=== PATIENT | female | born 1935 | race Caucasian/White ===

== ENCOUNTER → 2018-11-11 | Outpatient (CLI) | payer MEDICARE ==
[~2018-11-11] MED LIST: ATORVASTATIN CA40 MG PO; CIPRO500 MG PO; ECOTRIN325 MG PO; HYDROCODONE-HOMA5 ML PO; LOSARTAN POTAS100 MG PO; MULTIVITAMINS1 EAC8; QUINAPRIL HCL40 MG PO; SYNTHROID125 MCG PO; TRIAMTERENE-HC1 EAC2; VERAPAMIL ER240 MG PO; VERAPAMIL HCL120 M1 PO; VITAMIN C
--- NOTE | 2018-11-12 07:37 | Diagnostic Imaging Report ---
PROCEDURE:X-RAY MODIFIED BARIUM SWALLOW COMPARISON:None. INDICATIONS:Dysphagia, GERD DISCUSSION:Fluoroscopic examination was performed in conjunction with speech pathology, during swallowing of a variety of thin and thick liquid consistencies. Fluoro time: 2.3 min Cumulative dose: 2.28 Gy.cm2 CONCLUSION:Trace aspiration with laryngeal penetration. Please see the report from speech pathology for complete details. Javier Hernandez D.O. Dictated by: Javier Hernandez D.O. on 11/12/2018 at 7:48 Electronically approved by: Javier Hernandez D.O. on 11/12/2018 at 7:48
== END ==
LOC: DX 13:05
PROVIDERS: ATTEND Internal Medicine Gastroenterology
DX: K29.00 Acute gastritis without bleeding (principal); K44.9 Diaphragmatic hernia without obstruction or gangrene; K21.0 Gastro-esophageal reflux disease with esophagitis; B37.81 Candidal esophagitis
CPT/HCPCS: 74230

== ENCOUNTER 2022-03-16 11:25 | Emergency (ER) | payer MEDICARE ==
[~2022-03-16] VITALS: Ht 162.6 cm; Wt 56.2 kg
[2022-03-16] MEDS ORDERED: BACTRIM DS TAB1 EACH PO (11:44)
[2022-03-16] MEDS ORDERED: CEPHALEXIN500 MG PO (11:44)
== END 2022-03-16 11:47 | disposition home or self-care (01) ==
LOC: ER 11:35
DX: S89.91XA Unspecified injury of right lower leg, initial encounter (principal); I10 Essential (primary) hypertension; E03.9 Hypothyroidism, unspecified
CPT/HCPCS: 99284

== ENCOUNTER 2022-03-27 09:35 | Outpatient (RCR) | payer MEDICARE ==
[2022-03-20 12:25] LABS: BASOPHILS # (AUTO) 0.1 (0.0-0.1); BASOPHILS % 0.9 % (0.0-1.0); EOSINOPHILS # (AUTO) 0.1 (0.0-0.4); EOSINOPHILS % 1.9 % (0.0-6.0); HEMATOCRIT 38.2 % (34.2-44.1); HEMOGLOBIN 12.3 g/dL (12.0-16.0); LYMPHOCYTES # (AUTO) 0.8 (1.0-3.2); LYMPHOCYTES % 13.4 % (18.0-39.1); MEAN CORPUSCULAR HEMOGLOBIN 31.5 pg (28-32); MEAN CORPUSCULAR HGB CONC 32.2 g/dL (31-35); MEAN CORPUSCULAR VOLUME 97.9 fL (81-99); MONOCYTES # (AUTO) 0.5 (0.2-0.8); MONOCYTES % 8.6 % (4.4-11.3); NEUTROPHILS # (AUTO) 4.4 (2.1-6.9); PLATELET COUNT 201 x10e3/uL (140-360); RED CELL DISTRIBUTION WIDTH 14.1 % (11.7-14.4)
[2022-03-20 12:48] LABS: ANION GAP 15.8 mmol/L (8-16); CALCIUM 9.6 mg/dL (8.4-10.2); CREATININE, SERUM 1.7 mg/dL (0.57-1.11); POTASSIUM 4.8 mmol/L (3.5-5.1)
[~2022-03-27 09:35] MED LIST changes: +BACTRIM DS TAB1 EACH PO; +CEPHALEXIN500 MG PO; +LIDOCAINE VISC 2% SOLN 15 ML UDC ONE
[2022-03-27] MEDS ORDERED: LIDOCAINE VISC 2% SOLN 15 ML UDC ONE (13:38)
== END 2022-04-06 ==
LOC: WCC 09:35
PROVIDERS: ATTEND Internal Medicine Infectious Disease
DX: I87.331 Chronic venous hypertension (idiopathic) with ulcer and inflammation of right lower extremity (principal); L97.811 Non-pressure chronic ulcer of other part of right lower leg limited to breakdown of skin; I87.2 Venous insufficiency (chronic) (peripheral); R60.0 Localized edema; I10 Essential (primary) hypertension; E03.9 Hypothyroidism, unspecified; F17.219 Nicotine dependence, cigarettes, with unspecified nicotine-induced disorders
CPT/HCPCS: 36415; 80048; 84134; 85025

== ENCOUNTER 2022-04-21 11:31 | Outpatient (RCR) | payer MEDICARE ==
[~2022-04-21 11:31] MED LIST changes: +MUPIROCIN 2% OINT 22 GM TUBE ONE; +SODIUM CHLORIDE 0.9% 500ML 0 ML ONE; +TRANEXAMIC ACID 0 ML ONE; +Vancomycin IV 0 MG ONE
== END 2022-05-07 ==
LOC: WCC 11:31
PROVIDERS: ATTEND Internal Medicine Infectious Disease
DX: I87.331 Chronic venous hypertension (idiopathic) with ulcer and inflammation of right lower extremity (principal); L97.811 Non-pressure chronic ulcer of other part of right lower leg limited to breakdown of skin; I87.2 Venous insufficiency (chronic) (peripheral); R60.0 Localized edema; I10 Essential (primary) hypertension; E03.9 Hypothyroidism, unspecified; F17.219 Nicotine dependence, cigarettes, with unspecified nicotine-induced disorders
CPT/HCPCS: J3370; J7040

== ENCOUNTER 2023-04-02 10:12 | Observation (INO) | payer MEDICARE ==
[2023-03-30 13:13] LABS: BASOPHILS % 0.5 % (0.0-1.0); EOSINOPHILS # (AUTO) 0.1 (0.0-0.4); EOSINOPHILS % 1.3 % (0.0-6.0); HEMATOCRIT 38.9 % (34.2-44.1); HEMOGLOBIN 12.5 g/dL (12.0-16.0); LYMPHOCYTES # (AUTO) 1.4 (1.0-3.2); LYMPHOCYTES % 17.1 % (18.0-39.1); MEAN CORPUSCULAR HEMOGLOBIN 31.3 pg (28-32); MEAN CORPUSCULAR HGB CONC 32.1 g/dL (31-35); MEAN CORPUSCULAR VOLUME 97.3 fL (81-99); MONOCYTES # (AUTO) 0.6 (0.2-0.8); MONOCYTES % 7.3 % (4.4-11.3); NEUTROPHILS # (AUTO) 6.1 (2.1-6.9); NEUTROPHILS % 73.3 % (38.7-80.0); PLATELET COUNT 246 x10e3/uL (140-360); RED CELL DISTRIBUTION WIDTH 13.7 % (11.7-14.4)
[~2023-04-02] VITALS: Ht 162.6 cm; Wt 55.3 kg
[~2023-04-02 10:12] MED LIST changes: +ALLEGRA ALLERGY60 MG PO; +BENICAR20 MG PO; +BIOTIN800 MCG PO; +CLONIDINE HCL0.1 MG PO; +CLOPIDOGREL75 MG PO; -LIDOCAINE VISC 2% SOLN 15 ML UDC ONE; +MIRALAX17 GM PO; -MUPIROCIN 2% OINT 22 GM TUBE ONE; -SODIUM CHLORIDE 0.9% 500ML 0 ML ONE; -TRANEXAMIC ACID 0 ML ONE; +VITAMIN D325 MCG; -Vancomycin IV 0 MG ONE
[2023-04-02] MEDS ORDERED: CEFAZOLIN SODIUM 2 GM ONE (10:46)
[2023-04-02] MEDS ORDERED: CELECOXIB 200 MG CAP ONE (10:46)
[2023-04-02] MEDS ORDERED: DEXAMETHASONE SOD PHOS 10 MG/1 ML VIAL ONE ×2 (10:46→11:59)
[2023-04-02] MEDS ORDERED: GABAPENTIN 300 MG CAP ONE (10:46)
[2023-04-02] MEDS ORDERED: LACTATED RINGER'S 1,000 ML ONE (10:47)
[2023-04-02] MEDS ORDERED: ACETAMINOPHEN 1000 MG/100 ML 100 ML IV ONE (10:59)
[2023-04-02] MEDS ORDERED: VITAMIN D325 MCG (11:02)
[2023-04-02 11:21] LABS: ANION GAP 16.6 mmol/L (8-16); CALCIUM 9.8 mg/dL (8.4-10.2); CREATININE, SERUM 0.99 mg/dL (0.57-1.11); POTASSIUM 4.6 mmol/L (3.5-5.1)
[2023-04-02] MEDS ORDERED: DEXAMETHASONE SOD PHOS INJ 4 MG/ML SDV ONE (11:55)
[2023-04-02] MEDS ORDERED: PROPOFOL IV EMULSION 10 MG/ML 20 ML VIAL ONE (11:55)
[2023-04-02] MEDS ORDERED: ONDANSETRON HCL INJ 2MG/ML 2ML 2 MG/ML VIAL ONE (11:55)
[2023-04-02] MEDS ORDERED: POVIDONE IODINE 0.05% 0.05 % ML PO ONE (11:55)
[2023-04-02] MEDS ORDERED: LIDOCAINE HCL 2% LOCAL INJ 5 ML SDV VIAL INJ ONE (11:55)
[2023-04-02] MEDS ORDERED: SEVOFLURANE INHAL SOLN 250 ML PEN BTL ONE (11:55)
[2023-04-02] MEDS ORDERED: ROPIVACAINE 0.5% 5 MG/ML 30 ML SDV ONE (11:59)
[2023-04-02] MEDS ORDERED: SODIUM CHLORIDE 0.9% 500ML 500 ML ONE (12:19)
[2023-04-02] MEDS ORDERED: Vancomycin IV 1,000 MG ONE (12:19)
[2023-04-02] MEDS ORDERED: TRANEXAMIC ACID 20 ML ONE (12:19)
[2023-04-02] MEDS ORDERED: DOCUSATE SODIUM 100 MG CAP PO PRN (14:00)
[2023-04-02] MEDS ORDERED: ONDANSETRON HCL INJ 2MG/ML 2ML 2 MG/ML VIAL IV PRN (14:00)
[2023-04-02] MEDS ORDERED: HYDROCODONE/APAP 5MG-325MG TAB PO PRN (14:00)
[2023-04-02] MEDS ORDERED: DIPHENHYDRAMINE HCL INJ 50 MG/ML VIAL IV PRN (14:00)
[2023-04-02] MEDS ORDERED: ACETAMINOPHEN 650 MG SUPP PR PRN (14:00)
[2023-04-02] MEDS ORDERED: HYDRALAZINE HCL 20 MG/ML VIAL ONE (14:29)
[2023-04-02] MEDS ORDERED: FENTANYL CITRATE/PF 100MCG/2 ML INJ ONE (14:41)
[2023-04-02 15:49] VITALS: BP 158/41; PULSE 80; RESP 18; TEMP 97.6; O2SAT 100
[2023-04-02] MEDS: ASPIRIN 325 MG TAB PO SCH (16:26)
[2023-04-02] MEDS: SODIUM CHLORIDE 0.9% 1000ML 1,000 ML IV SCH (16:26)
[2023-04-02] MEDS: HYDROCODONE/APAP 7.5MG-325MG 1 EA TAB PO PRN ×2 (16:27→21:04)
[2023-04-02 16:32] VITALS: PULSE 79; RESP 16; O2SAT 94
[2023-04-02 17:44] VITALS: BP 158/41; PULSE 79; RESP 16; TEMP 97.6; O2SAT 94
[2023-04-02] MEDS ORDERED: ACETAMINOPHEN 1000 MG/100 ML IV PRN (18:00)
[2023-04-02 20:00] VITALS: BP 139/63; PULSE 86; RESP 18; TEMP 97.5; O2SAT 97
[2023-04-02 20:05] VITALS: PULSE 86; RESP 18; O2SAT 97
[2023-04-03] VITALS (8 sets, daily range): BP systolic 143–165; BP diastolic 52–86; PULSE 81–95; RESP 16–19; TEMP 98.1–98.6; O2SAT 97–100
[2023-04-03 05:38] LABS: BASOPHILS % 0.3 % (0.0-1.0); HEMATOCRIT 33.3 % (34.2-44.1); HEMOGLOBIN 10.4 g/dL (12.0-16.0); LYMPHOCYTES # (AUTO) 0.6 (1.0-3.2); LYMPHOCYTES % 4.2 % (18.0-39.1); MEAN CORPUSCULAR HEMOGLOBIN 31.2 pg (28-32); MEAN CORPUSCULAR HGB CONC 31.2 g/dL (31-35); MONOCYTES # (AUTO) 0.7 (0.2-0.8); MONOCYTES % 4.6 % (4.4-11.3); NEUTROPHILS # (AUTO) 13.8 (2.1-6.9); NEUTROPHILS % 90.4 % (38.7-80.0); PLATELET COUNT 228 x10e3/uL (140-360); RED BLOOD COUNT 3.33 x10e6/uL (3.6-5.1); RED CELL DISTRIBUTION WIDTH 14.1 % (11.7-14.4)
[2023-04-03 05:59] LABS: ANION GAP 15.1 mmol/L (8-16); CALCIUM 8.5 mg/dL (8.4-10.2); CREATININE, SERUM 1.28 mg/dL (0.57-1.11); POTASSIUM 5.1 mmol/L (3.5-5.1)
[2023-04-03] MEDS ORDERED: LEVOTHYROXINE SODIUM 125 MCG TAB PO SCH (06:00)
[2023-04-03] MEDS: SODIUM CHLORIDE 0.9% 1000ML 1,000 ML IV SCH ×2 (06:15→12:25)
[2023-04-03] MEDS ORDERED: OLMESARTAN 20 MG TAB PO SCH (09:00)
[2023-04-03] MEDS ORDERED: ATORVASTATIN 40 MG TAB PO SCH (09:00)
[2023-04-03] MEDS ORDERED: VERAPAMIL HCL 240 MG TABSR PO SCH (09:00)
[2023-04-03] MEDS: ASPIRIN 325 MG TAB PO SCH (09:23)
[2023-04-03] MEDS ORDERED: VERAPAMIL HCL 120 MG TABSR PO SCH ×2 (10:00→21:00)
[2023-04-03] MEDS ORDERED: ACETAMINOPHEN 325 MG TAB PO PRN (11:30)
[2023-04-03] MEDS ORDERED: ONDANSETRON HCL INJ 2MG/ML 2ML 2 MG/ML VIAL IV PRN (11:30)
[2023-04-03] MEDS ORDERED: DOCUSATE SODIUM 100 MG CAP PO PRN (11:30)
[2023-04-03] MEDS ORDERED: METOPROLOL TARTRATE INJ 1 MG/ML VIAL IV PRN (11:30)
[2023-04-03] MEDS ORDERED: HYDRALAZINE HCL 20 MG/ML VIAL IV PRN (11:30)
[2023-04-03] MEDS: HYDROCODONE/APAP 7.5MG-325MG 1 EA TAB PO PRN (13:51)
[2023-04-03] MEDS ORDERED: ONDANSETRON HCL 4 MG ORAL DISINTEGRATING TAB PO PRN (16:00)
== END 2023-04-03 17:47 | disposition home or self-care (01) ==
LOC: OR 10:12 → PACU V 13:51 → MED/SURG 15:12
PROVIDERS: ADMIT Specialist; ATTEND Specialist
DX: M17.12 Unilateral primary osteoarthritis, left knee (principal); R41.0 Disorientation, unspecified; I11.9 Hypertensive heart disease without heart failure; I25.10 Atherosclerotic heart disease of native coronary artery without angina pectoris; Z95.5 Presence of coronary angioplasty implant and graft; E78.5 Hyperlipidemia, unspecified; E03.9 Hypothyroidism, unspecified; M24.60 Ankylosis, unspecified joint; R53.81 Other malaise; R29.6 Repeated falls; Z01.812 Encounter for preprocedural laboratory examination; Z01.818 Encounter for other preprocedural examination; Z79.899 Other long term (current) drug therapy; Z79.02 Long term (current) use of antithrombotics/antiplatelets
CPT/HCPCS: 27447; 36415 ×3; 71046; 73560; 80048 ×2; 85025 ×2; 86850; 86900; 86920; 93005; 94799 ×2; 97110; 97116 ×2; 97161; 97530; C1713 ×2; C1776 ×4; G0378 ×2; J0131; J0171; J0360; J0690 ×2; J1100 ×2; J2001; J2405; J2704; J2795; J3010; J3370; J7030 ×2; J7040; J7121

== ENCOUNTER 2024-03-19 12:39 | Inpatient (IN) | payer MEDICARE ==
[2024-03-19] VITALS (7 sets, daily range): BP systolic 146–150; BP diastolic 63–74; PULSE 65–74; RESP 18–20; TEMP 97.7–98.9; O2SAT 90–97
[~2024-03-19] VITALS: Ht 162.6 cm; Wt 58.1 kg
[2024-03-19 13:49] LABS: CLARITY,URINE CLEAR (CLEAR); COLOR,URINE YELLOW (YELLOW); LEUKOCYTE ESTERASE ,URINE NEGATIVE (NEGATIVE); NITRITE,URINE NEGATIVE (NEGATIVE); PH,URINE 6.5 (5 - 7)
[2024-03-19 13:50] LABS: BILIRUBIN,URINE NEGATIVE (NEGATIVE); GLUCOSE, URINE NEGATIVE (NEGATIVE); KETONES,URINE NEGATIVE (NEGATIVE); PROTEIN,URINE DIPSTICK NEGATIVE (NEGATIVE); URINE UROBILINOGEN 0.2 mg/dL (0.2 - 1)
[2024-03-19 14:05] LABS: BACTERIA,URINE FEW /HPF; EPITHELIAL CELLS,URINE RARE /LPF; RBC,URINE 0-5 /HPF (0-5); WBC,URINE (MAN) 0-5 /HPF (0-5)
[2024-03-19 14:10] LABS: BASOPHILS % 0.3 % (0.0-1.0); EOSINOPHILS # (AUTO) 0.2 (0.0-0.4); HEMATOCRIT 26.6 % (34.2-44.1); HEMOGLOBIN 8.9 g/dL (12.0-16.0); LYMPHOCYTES # (AUTO) 1.3 (1.0-3.2); LYMPHOCYTES % 21.4 % (18.0-39.1); MEAN CORPUSCULAR HEMOGLOBIN 29.5 pg (28-32); MEAN CORPUSCULAR HGB CONC 33.5 g/dL (31-35); MEAN CORPUSCULAR VOLUME 88.1 fL (81-99); MONOCYTES # (AUTO) 0.5 (0.2-0.8); MONOCYTES % 8.6 % (4.4-11.3); NEUTROPHILS % 66.4 % (38.7-80.0); PLATELET COUNT 204 x10e3/uL (140-360); RED BLOOD COUNT 3.02 x10e6/uL (3.6-5.1); WHITE BLOOD COUNT 6.02 x10e3/uL (4.8-10.8)
[2024-03-19 14:25] LABS: ALBUMIN 3.8 g/dL (3.5-5.0); ALBUMIN/GLOBULIN RATIO 1.5 (0.8-2.0); BILIRUBIN,TOTAL 0.6 mg/dL (0.2-1.2); CREATININE, SERUM 1.8 mg/dL (0.57-1.11); MAGNESIUM 1.6 MG/DL (1.3-2.1); TOTAL PROTEIN 6.4 g/dL (6.5-8.1)
[2024-03-19 14:26] LABS: ANION GAP 18.7 mmol/L (8-16); POTASSIUM 4.7 mmol/L (3.0-5.1)
[2024-03-19 14:27] LABS: CALCIUM 9.8 mg/dL (8.0-10.3)
[2024-03-19 14:30] LABS: TROPONIN I 0.02 ng/mL (0-0.300)
[2024-03-19 14:37] LABS: INR 1.13; PROTHROMBIN TIME 15.3 seconds (11.9-14.5)
[2024-03-19] MEDS ORDERED: ONDANSETRON HCL INJ 2MG/ML 2ML 2 MG/ML VIAL IV PRN (14:45)
[2024-03-19 14:48] LABS: PARTIAL THROMBOPLASTIN TIME 31.8 seconds (23.8-35.5)
[2024-03-19] MEDS: BUMETANIDE INJ 0.25MG/ML 4ML VIAL IV ONE (16:20)
[2024-03-19] MEDS ORDERED: NIFEDIPINE ER30 M1 PO (18:36)
[2024-03-19] MEDS ORDERED: CARVEDILOL3.125 MG PO (18:36)
[2024-03-19] MEDS ORDERED: LOSARTAN POTASS25 MG PO (18:36)
[2024-03-19] MEDS ORDERED: BUMETANIDE2 MG PO (18:36)
[2024-03-19] MEDS ORDERED: ALBUTEROL1.25 MG/3 NEB (18:36)
[2024-03-19] MEDS ORDERED: PROTONIX20 MG PO (18:36)
[2024-03-19] MEDS: ALBUTEROL/IPRATROPIUM 3 ML NEB NEB PRN (22:21)
[2024-03-20] VITALS (10 sets, daily range): BP systolic 121–184; BP diastolic 68–86; PULSE 63–77; RESP 17–21; TEMP 97.5–98.1; O2SAT 92–100
[2024-03-20] MEDS: HYDRALAZINE HCL 20 MG/ML VIAL IV PRN (05:41)
[2024-03-20 05:51] LABS: BASOPHILS % 0.5 % (0.0-1.0); EOSINOPHILS # (AUTO) 0.2 (0.0-0.4); EOSINOPHILS % 3.5 % (0.0-6.0); HEMATOCRIT 27.6 % (34.2-44.1); HEMOGLOBIN 9.1 g/dL (12.0-16.0); LYMPHOCYTES # (AUTO) 1.4 (1.0-3.2); LYMPHOCYTES % 23.4 % (18.0-39.1); MEAN CORPUSCULAR HEMOGLOBIN 29.4 pg (28-32); MONOCYTES # (AUTO) 0.6 (0.2-0.8); MONOCYTES % 9.3 % (4.4-11.3); NEUTROPHILS # (AUTO) 3.8 (2.1-6.9); NEUTROPHILS % 63.1 % (38.7-80.0); PLATELET COUNT 190 x10e3/uL (140-360); WHITE BLOOD COUNT 5.99 x10e3/uL (4.8-10.8)
[2024-03-20 06:23] LABS: ALBUMIN 3.5 g/dL (3.5-5.0); ALBUMIN/GLOBULIN RATIO 1.3 (0.8-2.0); BILIRUBIN,TOTAL 0.5 mg/dL (0.2-1.2); CHOL/HDL RATIO 2.6 (3.0-3.6); CREATININE, SERUM 1.65 mg/dL (0.57-1.11); TOTAL PROTEIN 6.2 g/dL (6.5-8.1)
[2024-03-20 06:24] LABS: TROPONIN I 0.033 ng/mL (0-0.300)
[2024-03-20 10:56] LABS: ANION GAP 18.2 mmol/L (8-16)
[2024-03-20 10:57] LABS: POTASSIUM 4.2 mmol/L (3.5-5.1)
[2024-03-20 10:58] LABS: CALCIUM 9.5 mg/dL (8.4-10.2)
[2024-03-20] MEDS: CLOPIDOGREL BISULFATE 75 MG TAB PO SCH (11:08)
[2024-03-20] MEDS: PANTOPRAZOLE SOD 40 MG TABEC PO SCH (11:08)
[2024-03-20] MEDS: CARVEDILOL 3.125 MG TAB PO SCH (11:08)
[2024-03-20] MEDS: LOSARTAN POTASSIUM 25 MG TAB PO SCH (11:08)
[2024-03-20] MEDS: NIFEDIPINE CR 30 MG TAB PO SCH (11:08)
[2024-03-20] MEDS: LEVOTHYROXINE SODIUM 125 MCG TAB PO SCH (11:09)
[2024-03-20] MEDS: BUMETANIDE INJ 0.25MG/ML 4ML VIAL IV SCH (11:09)
[2024-03-20] MEDS: POLYETHYLENE GLYCOL 3350 17 GM PACK PO PRN (11:22)
[2024-03-20] MEDS ORDERED: ONDANSETRON HCL 4 MG ORAL DISINTEGRATING TAB PO PRN (11:30)
[2024-03-20 15:18] LABS: TROPONIN I 0.032 ng/mL (0-0.300)
[2024-03-20] MEDS: ATORVASTATIN 40 MG TAB PO SCH (20:43)
[2024-03-20] MEDS: TRAZODONE HCL 50 MG TAB PO PRN (20:43)
[2024-03-21 07:31] LABS: ALBUMIN 3.3 g/dL (3.5-5.0); ALBUMIN/GLOBULIN RATIO 1.3 (0.8-2.0); BILIRUBIN,TOTAL 0.6 mg/dL (0.2-1.2); CREATININE, SERUM 1.58 mg/dL (0.57-1.11); TOTAL PROTEIN 5.8 g/dL (6.5-8.1)
[2024-03-21] MEDS: LOSARTAN POTASSIUM 100 MG TAB PO SCH (09:10)
[2024-03-21 09:16] VITALS: PULSE 63; RESP 18; O2SAT 93
[2024-03-21 09:43] VITALS: BP 111/98; PULSE 63; RESP 18; TEMP 98; O2SAT 93
[2024-03-21 12:15] VITALS: BP 136/60; PULSE 58; RESP 20; TEMP 98; O2SAT 96
[2024-03-21 16:06] LABS: ANION GAP 17.1 mmol/L (8-16); CALCIUM 9.7 mg/dL (8.4-10.2); POTASSIUM 4.1 mmol/L (3.5-5.1)
[2024-03-21 20:00] VITALS: BP 145/56; PULSE 59; RESP 18; TEMP 97.7; O2SAT 95
[2024-03-21 20:15] VITALS: BP 145/56; PULSE 59; RESP 18; TEMP 97.7; O2SAT 95
[2024-03-21 20:30] VITALS: PULSE 75; RESP 18; O2SAT 94
[2024-03-22] VITALS (9 sets, daily range): BP systolic 126–148; BP diastolic 52–69; PULSE 58–67; RESP 18–20; TEMP 97.3–98.8; O2SAT 94–99
[2024-03-22 19:21] LABS: ANION GAP 17.9 mmol/L (8-16); CALCIUM 8.2 mg/dL (8.4-10.2); CREATININE, SERUM 2.06 mg/dL (0.57-1.11); POTASSIUM 4.9 mmol/L (3.5-5.1)
[2024-03-23] VITALS (9 sets, daily range): BP systolic 139–172; BP diastolic 54–74; PULSE 62–71; RESP 16–20; TEMP 97.5–98.2; O2SAT 94–97
[2024-03-23 07:58] LABS: BASOPHILS % 0.4 % (0.0-1.0); EOSINOPHILS # (AUTO) 0.2 (0.0-0.4); EOSINOPHILS % 3.7 % (0.0-6.0); HEMATOCRIT 27.7 % (34.2-44.1); LYMPHOCYTES % 20.1 % (18.0-39.1); MEAN CORPUSCULAR HEMOGLOBIN 28.9 pg (28-32); MEAN CORPUSCULAR HGB CONC 32.5 g/dL (31-35); MEAN CORPUSCULAR VOLUME 89.1 fL (81-99); MONOCYTES # (AUTO) 0.5 (0.2-0.8); MONOCYTES % 10.8 % (4.4-11.3); NEUTROPHILS # (AUTO) 3.2 (2.1-6.9); NEUTROPHILS % 64.6 % (38.7-80.0); PLATELET COUNT 193 x10e3/uL (140-360); RED BLOOD COUNT 3.11 x10e6/uL (3.6-5.1); RED CELL DISTRIBUTION WIDTH 16.1 % (11.7-14.4); WHITE BLOOD COUNT 4.92 x10e3/uL (4.8-10.8)
[2024-03-23 08:20] LABS: ANION GAP 17.5 mmol/L (8-16); CREATININE, SERUM 1.84 mg/dL (0.57-1.11); POTASSIUM 4.5 mmol/L (3.5-5.1)
[2024-03-23] MEDS ORDERED: BUMETANIDE 1 MG TAB PO SCH (09:00)
[2024-03-23] MEDS: BUMETANIDE INJ 0.25MG/ML 4ML VIAL IV SCH (17:46)
[2024-03-24] VITALS (8 sets, daily range): BP systolic 127–156; BP diastolic 53–74; PULSE 58–66; RESP 17–18; TEMP 97.7–98.5; O2SAT 94–98
[2024-03-25] VITALS: BP 158/68; PULSE 56; RESP 17; TEMP 97.6; O2SAT 92
[2024-03-25 05:32] LABS: BASOPHILS % 0.4 % (0.0-1.0); EOSINOPHILS # (AUTO) 0.2 (0.0-0.4); EOSINOPHILS % 3.2 % (0.0-6.0); HEMOGLOBIN 8.7 g/dL (12.0-16.0); LYMPHOCYTES # (AUTO) 1.2 (1.0-3.2); LYMPHOCYTES % 25.2 % (18.0-39.1); MEAN CORPUSCULAR HEMOGLOBIN 28.5 pg (28-32); MEAN CORPUSCULAR HGB CONC 32.2 g/dL (31-35); MEAN CORPUSCULAR VOLUME 88.5 fL (81-99); MONOCYTES # (AUTO) 0.6 (0.2-0.8); NEUTROPHILS # (AUTO) 2.9 (2.1-6.9); PLATELET COUNT 190 x10e3/uL (140-360); RED BLOOD COUNT 3.05 x10e6/uL (3.6-5.1); WHITE BLOOD COUNT 4.93 x10e3/uL (4.8-10.8)
[2024-03-25 05:55] LABS: ANION GAP 16.5 mmol/L (8-16); CALCIUM 9.2 mg/dL (8.4-10.2); CREATININE, SERUM 1.84 mg/dL (0.57-1.11); POTASSIUM 4.5 mmol/L (3.5-5.1)
[2024-03-25 07:53] VITALS: BP 154/64; PULSE 65; RESP 17; TEMP 97.6; O2SAT 95
[2024-03-25 08:00] VITALS: BP 154/65; PULSE 65; RESP 17; TEMP 97.6; O2SAT 95
[2024-03-25 08:40] VITALS: PULSE 70; RESP 18; O2SAT 95
[2024-03-25] MEDS ORDERED: BUMETANIDE2 MG PO (11:24)
[2024-03-25] MEDS ORDERED: COZAAR100 MG PO (11:24)
[2024-03-25 11:36] VITALS: BP 117/51; PULSE 63; RESP 17; TEMP 97.6; O2SAT 94
== END 2024-03-25 13:24 | disposition home health service (06) | DRG 291 ==
LOC: ER 12:51 → ERHOLD 14:44 → MED/SURG 18:02
PROVIDERS: ADMIT Internal Medicine; ATTEND Internal Medicine
DX: I13.0 Hypertensive heart and chronic kidney disease with heart failure and stage 1 through stage 4 chronic kidney disease, or unspecified chronic kidney disease (principal); I50.43 Acute on chronic combined systolic (congestive) and diastolic (congestive) heart failure; J96.01 Acute respiratory failure with hypoxia; N17.9 Acute kidney failure, unspecified; N18.4 Chronic kidney disease, stage 4 (severe); D63.1 Anemia in chronic kidney disease; J44.9 Chronic obstructive pulmonary disease, unspecified; I25.10 Atherosclerotic heart disease of native coronary artery without angina pectoris; Z95.5 Presence of coronary angioplasty implant and graft; Z87.891 Personal history of nicotine dependence; E03.9 Hypothyroidism, unspecified; Z71.3 Dietary counseling and surveillance; Z68.22 Body mass index [BMI] 22.0-22.9, adult; Z11.52 Encounter for screening for COVID-19; Z86.73 Personal history of transient ischemic attack (TIA), and cerebral infarction without residual deficits; Z71.81 Spiritual or religious counseling; Z79.899 Other long term (current) drug therapy; Z79.02 Long term (current) use of antithrombotics/antiplatelets; Z79.82 Long term (current) use of aspirin
CPT/HCPCS: 36415; 71045; 71250; 76770; 80048; 80053; 80061; 81001; 82550; 83735; 83880; 84484; 85025; 85610; 85730; 87400; 93005; 94640; 94799; 99252; 99284; J0360; U0002